=== PATIENT | male | born 1965 | race Caucasian/White ===

== ENCOUNTER 2017-02-06 22:59 | Inpatient (IN) | payer OTHER ==
[2017-02-06 23:14] VITALS: BMI 29.5
[2017-02-06] MEDS ORDERED: Sodium Chloride 0.9% 1,000 ML IV STA (23:26)
[2017-02-06] MEDS ORDERED: Albuterol-Ipratrop 3 mg / 0.5 (3 ml) UD IH STA (23:27)
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
[2017-02-07 00:33] LABS: ADD MANUAL DIFF? NO
[2017-02-07 00:42] LABS: VENOUS BLOOD GAS BASE EXCESS 4.3 mmol/L (0.0-2.0); VENOUS BLOOD PH 7.35 (7.32-7.43)
[2017-02-07 00:43] LABS: BASO # 0.01 K/mm3 (0.0-2.0); BASO % 0.1 % (0.0-3.0); EOS % 0.6 % (1.5-5.0); GRAN # 4.18 (1.4-6.5); GRAN % 61.2 % (50.0-68.0); HEMATOCRIT 32.5 % (42.0-52.0); LYMPH # 1.8 (1.2-3.4); MEAN CELL VOLUME 89.3 fL (80.0-105.0); MEAN CORPUSCULAR HEMOGLOBIN 29.7 pg (25.0-35.0); MEAN CORPUSCULAR HGB CONC 33.2 g/dl (31.0-37.0); MEAN PLATELET VOLUME 8.9 fl (7.0-11.0); MONO # 0.8 (0.1-0.6); MONO % 12.1 % (1.0-6.0); PLATELET COUNT 125 10^3/uL (120.0-450.0); RED CELL DISTRIBUTION WIDTH 13.9 % (11.5-14.5); WHITE BLOOD COUNT 6.8 10^3/ul (4.5-11.0)
[2017-02-07 00:46] LABS: PH,URINE 7.5 (4.7-8.0); URINE BILIRUBIN NEGATIVE (NEGATIVE); URINE BLOOD MODERATE (NEGATIVE); URINE GLUCOSE (UA) NEGATIVE (NEGATIVE); URINE KETONE NEGATIVE (NEGATIVE); URINE LEUKOCYTE ESTERASE NEGATIVE Leu/uL (NEGATIVE); URINE PROTEIN TRACE mg/dL (<30 mg/dL)
[2017-02-07 00:47] LABS: ALKALINE PHOSPHATASE 63 U/L (38-133); ALT/SGPT 38 U/L (7-56); AST/SGOT 35 U/L (15-59); BILIRUBIN,TOTAL 0.5 mg/dL (0.2-1.3); BLOOD UREA NITROGEN 13 mg/dL (7-21); CALCIUM 7.9 mg/dL (8.4-10.5); CARBON DIOXIDE 29 mmol/L (21-33); CHLORIDE 98 mmol/L (98-107); GFR AFRICAN-AMERICAN > 60; GLUCOSE,RANDOM 125 mg/dL (70-110); INR 1.22 (0.93-1.08); PARTIAL THROMBOPLASTIN TIME 30.3 Seconds (23.7-30.8); POTASSIUM 4.1 mmol/L (3.6-5.0); SODIUM 136 mmol/L (132-148); TOTAL PROTEIN 7.1 g/dL (5.8-8.3)
[2017-02-07 00:48] LABS: URINE APPEARANCE SL CLOUDY (CLEAR); URINE COLOR YELLOW (YELLOW)
[2017-02-07 00:59] LABS: URINE EPITHELIAL CELLS 0 - 2 /hpf (0-5); URINE WBC 0 - 2 /hpf (0-6)
[2017-02-07 01:21] LABS: ARTERIAL BLOOD GAS HCO3 27.9 mmol/L (21-28); ARTERIAL BLOOD GAS O2 CAPACITY 13.8 mL/dl (16-24); ARTERIAL BLOOD GAS O2 CONTENT 13.3 ML/dl (15-23); ARTERIAL BLOOD HGB O2 SAT 93.5 % (95.0-98.0); HHB 3.7 % (0-5); METHEMOGLOBIN 0.8 % (0.0-3.0)
--- NOTE | 2017-02-07 01:31 | RAD ---
EXAM: XR Chest, 1 View CLINICAL HISTORY: 51 years old, male; Condition or disease; Other: Sepsis; Additional info: Sepsis patient TECHNIQUE: Frontal view of the chest. COMPARISON: CR - CHEST PORTABLE 04/21/2016 5:32:49 PM FINDINGS: Limitations: Radiographic technique - mild. Lungs: Mild underinflation. Minimal subsegmental atelectasis. No consolidation. Pleural space: Cannot exclude small pleural effusions. No pneumothorax. Heart: No cardiomegaly. Mediastinum: Unremarkable. Bones/joints: No acute fracture. Postsurgical changes of cervical spine. IMPRESSION: 1. No definite radiographic evidence of pneumonia. 2. Incidental/non-acute findings are described above.
[2017-02-07] MEDS ORDERED: levoFLOXacin 750 mg in D5W 750 MG/150 ML BAG IV STA (02:35)
[2017-02-07] MEDS ORDERED: Albuterol-Ipratrop 3 mg / 0.5 (3 ml) UD IH STA (02:38)
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
[2017-02-07] MEDS: Sodium Chloride 0.9% 1,000 ML IV SCH (03:50)
[2017-02-07] MEDS: Albuterol-Ipratrop 3 mg / 0.5 (3 ml) UD IH PRN (07:29)
[2017-02-07] MEDS ORDERED: Iohexol 350 MG/100 ML VIAL ONE (07:46)
[2017-02-07] MEDS: Insulin Reg-LOW-Coverage SC SCH ×4 (08:27→23:04)
[2017-02-07 09:04] LABS: IRON 36 ug/dL (45-180)
--- NOTE | 2017-02-07 09:31 | CT ---
PROCEDURE: CT Chest with contrast HISTORY: SOB; eval for PNA COMPARISON: None. TECHNIQUE: Contiguous axial images were obtained through the chest with intravenous contrast enhancement. Sagittal and coronal reconstructions were performed. IV contrast: 100 cc Omnipaque 350 contrast material. Radiation dose (DLP): 603.36 mGy-cm. This CT exam was performed using one or more of the following dose reduction techniques: Automated exposure control, adjustment of the mA and/or kV according to patient size, and/or use of iterative reconstruction technique. FINDINGS: LUNGS: Bibasilar consolidation changes could represent atelectasis and or infiltrates. MEDIASTINUM: Diffuse circumferential wall thickening of the esophagus most significant at involving the lower 1/3 of the esophagus. . There is food debris and air seen throughout the lower esophagus with a larger amount of air in the proximal esophagus. Findings are nonspecific though differential diagnosis would include esophagitis high or possibly esophageal carcinoma. Endoscopy followup is recommended. Heart appears upper limits of normal/borderline enlarged. No significant pericardial effusion. Ascending thoracic aorta measures approximately 2.9 cm and descending thoracic aorta measures approximately 2.4 cm. Pulmonary trunk measures approximately 3.3 cm; rule out underlying pulmonary arterial hypertension. There are multiple mediastinal lymph nodes nonspecific. Additionally, infrahilar adenopathy cannot be completely excluded as the aforementioned consolidation changes extend superomedially into the infrahilar regions of. Consolidation and adenopathy and therefore difficult to distinguish. The central airway midline and patent. No obvious endoluminal lesions. PLEURA: No pleural fluid. No pneumothorax. BONES: No fracture. No destructive lesion. UPPER ABDOMEN: Spleen is mildly enlarged measuring just over 13 cm in AP dimension. No splenic mass or collection. Moderate - significant fatty hepatic infiltration. Small exophytic cyst upper pole left kidney. OTHER FINDINGS: None. IMPRESSION: There is diffuse circumferential wall thickening of the entire esophagus the most significant involving the lower 1/2 of the esophagus. Findings are of uncertain etiology though differential diagnosis would include esophagitis or possibly esophageal carcinoma. Endoscopy followup is recommended. Bibasilar consolidation changes may represent atelectasis and or infiltrates. Multiple small mediastinal lymph nodes. Additionally, infrahilar adenopathy cannot be completely excluded as the aforementioned consolidation changes extend superomedially into the infrahilar regions of. Consolidation and adenopathy and therefore difficult to distinguish Moderate to significant fatty hepatic infiltration. Mild splenomegaly. Small exophytic cyst upper pole left kidney. These findings and recommendations discussed with the resident [employer] certified network professional Dr. Bower at approximately at 9:22 a.m. with written down and read back verification.
[2017-02-07] MEDS ORDERED: BUPRENORPHINE HCL PO SCH (10:00)
[2017-02-07] MEDS ORDERED: NALOXONE HCL PO SCH (10:00)
[2017-02-07] MEDS ORDERED: [UNRECOGNIZED DRUG - OTHER] PO SCH (10:00)
[2017-02-07 12:42] LABS: FOLATE 16.2 ng/mL
--- NOTE | 2017-02-07 17:08 | CON ---
DATE: 02/07/2017 Seen and examined at the bedside earlier this afternoon. The chart was reviewed. REQUEST FOR CONSULT: Esophageal thickening on CT scan. HISTORY OF PRESENT ILLNESS: This is a 51-year-old male with a past medical history of diabetes melli tus type 2, opioid abuse on Suboxone, came to the Emergency Room with complaints of fever. The patie nt reports having taken his temperature at home and found to be at least 100.3. He also complained o f productive cough, nasal congestion and feeling fatigued. The patient was seen by his PCP, Dr. Vane arita, and was given a prescription for azithromycin and informed to go to the Emergency Room if sympto ms did not improve. The patient denies any nausea, vomiting, abdominal pain or any chest pains. No complaints of any diarrhea or any overt GI bleed. On admission, he had a chest x-ray and that report ed minimal subsegmental atelectasis, no consolidation and could not exclude small pleural effusions. He then had a CT of the chest this morning and that reported thickening in the esophagus considering esophagitis or a possible malignancy as well as bibasilar consolidations, which could be atelectasis or infiltrates. He is also noted to have small multiple mediastinal lymph nodes. The patient repor ts that he had an upper endoscopy that was recommended to him by his PCP at [facility] a few months ago. He is not aware of the findings. No reports of any hematemesis or hemoptysis at this time. VITAL SIGNS: Temperature is 97.9, blood pressure 116/61, pulse is 60, respirations 20 and 94 on room air. LABORATORY: This is from 02/06: WBC is 6.8, H and H are 10.8 and 32.5, platelets of 125. PT is 13. 2, INR is 1.22, PTT is 38.3. Sodium is 136, K is 4.1, BUN 13, creatinine 0.6. Iron 36, TIBC is 280, percent saturation is 13. Ferritin is 138. His B12 is 595 and that is fine. Folate is 16.2. Urin alysis was negative for leukocyte esterase, did show moderate blood and a trace of protein. PHYSICAL EXAMINATION: HEENT: Sclerae are anicteric. NECK: Supple. CARDIAC: S1, S2. LUNGS: Decreased breath sounds. Positive rhonchi bilaterally. Did not hear any wheezing or rales. ABDOMEN: With bowel sounds, soft. Does not appear distended, nontender on palpation. No rebound, g uarding. EXTREMITIES: Positive pedal pulses, no edema. NEUROLOGIC: Awake, alert, and oriented. ASSESSMENT: This is a 51-year-old male who came in with complaints of fever and productive cough, fe eling weakness. A chest x-ray was negative for any evidence of pneumonia. He also had a CT scan of the chest, which reported bibasilar consolidation changes either atelectasis or infiltrates, but he w as noted to have some circumferential thickening in the entire esophagus with unknown etiology consid ering esophagitis versus esophageal carcinoma. The patient also noted to have multiple mediastinal l ymph nodes present. Other comorbidities is history of opiate abuse on Suboxone. PAST SURGICAL HISTORY: The patient had C-spine. Denies any abdominal or cardiac surgery. FAMILY HISTORY: Brother with CABG. ALLERGIES: PENICILLIN. SOCIAL HISTORY: Former tobacco use. Denies any illicit drugs or alcohol. ALLERGIES: PENICILLIN. MEDICATIONS: Reviewed as per MAR. REVIEW OF SYSTEMS: Systems reviewed with positive findings, see HPI. PAST MEDICAL HISTORY: A 51-year-old male with history of diabetes mellitus type 2, came with fever a nd complaints of cough. Chest x-ray was negative for any evidence of pneumonia. He did go for a CT scan, which showed the thickening in the entire esophagus, rule out any esophagitis, rule out esophag eal carcinoma, multiple small mediastinal lymph nodes, splenomegaly and fatty hepatic infiltration. PLAN: The patient states he had an endoscopy in [facility]. We will request to obta in these records for further review and then evaluate the need for upper endoscopy to follow this up. The patient is going to be started on Levaquin IV antibiotics, on IV fluids for hydration. Continu e GI prophylaxis, Protonix. He is on insulin and on consistent carbohydrate diet. Thank you for this consult and for allowing us to participating in your patient's care. We will make further recommendations based upon patient's clinical course. The patient was seen and case discuss ed with Dr. Al. Aarti PARISI cc: [id number] TT: 02/07/2017 17:07:53 Confirmation # [id number] Dictation # [id number] mn
--- NOTE | 2017-02-07 20:19 | CON ---
DATE: 02/07/2017 ADDENDUM This is an addendum to the GI consultation report dictated by Aarti Molina APN. This patient was adm itted with cough, shortness of breath and fever. The patient had a CT scan, which showed thickening of the esophagus, rule out esophagitis, also multiple small mediastinal lymph nodes were present. GI consultation was requested to evaluate this. The patient did have recently an endoscopy and a colon oscopy. As per the patient, colonoscopy preparation was poor and he is advised to get it done again. He has not seen the foundry laborer coreroom postprocedure yet. He does not remember the exact findings of the upper endoscopy. On examination, his abdomen was soft. There is no tenderness. PLAN: 1. To continue the antibiotics and treatment. 2. PPI, Protonix 40 mg daily in addition. 3. We will review the records to the previous endoscopy done in [facility] and the pathology. Thank you very much for allowing us to participate in the care of the patient. Kimberly Al MD cc: [id number] TT: 02/07/2017 20:18:43 Confirmation # [id number] Dictation # [id number] mn
[2017-02-07] MEDS: guaiFENesin 200 mg/10 ml Syrup UD PO PRN (21:34)
[2017-02-08] MEDS: Pantoprazole 40 mg EC Tab PO SCH (05:40)
[2017-02-08 07:35] LABS: ADD MANUAL DIFF? NO
[2017-02-08 07:39] LABS: BASO # 0.01 K/mm3 (0.0-2.0); BASO % 0.1 % (0.0-3.0); EOS # 0.1 (0.0-0.7); EOS % 1.2 % (1.5-5.0); GRAN # 3.79 (1.4-6.5); GRAN % 56.9 % (50.0-68.0); HEMATOCRIT 32.6 % (42.0-52.0); LYMPH # 2.1 (1.2-3.4); LYMPH % 31.6 % (22.0-35.0); MEAN CELL VOLUME 89.1 fL (80.0-105.0); MEAN CORPUSCULAR HGB CONC 32.5 g/dl (31.0-37.0); MEAN PLATELET VOLUME 8.3 fl (7.0-11.0); MONO # 0.7 (0.1-0.6); MONO % 10.2 % (1.0-6.0); PLATELET COUNT 116 10^3/uL (120.0-450.0); RED CELL DISTRIBUTION WIDTH 13.6 % (11.5-14.5); WHITE BLOOD COUNT 6.7 10^3/ul (4.5-11.0)
[2017-02-08 08:22] LABS: ALKALINE PHOSPHATASE 61 U/L (38-133); ALT/SGPT 37 U/L (7-56); AST/SGOT 28 U/L (15-59); BILIRUBIN,TOTAL 0.4 mg/dL (0.2-1.3); BLOOD UREA NITROGEN 7 mg/dL (7-21); CALCIUM 7.8 mg/dL (8.4-10.5); CARBON DIOXIDE 29 mmol/L (21-33); CHLORIDE 102 mmol/L (95-110); GFR AFRICAN-AMERICAN > 60; GLUCOSE,RANDOM 115 mg/dL (70-110); POTASSIUM 4.3 mmol/L (3.6-5.0); SODIUM 137 mmol/L (132-148); TOTAL PROTEIN 6.6 g/dL (5.8-8.3)
[2017-02-08] MEDS: Insulin Reg-LOW-Coverage SC SCH ×4 (08:31→21:15)
[2017-02-08] MEDS: levoFLOXacin 750 mg in D5W 750 MG/150 ML BAG IVPB SCH (09:59)
[2017-02-08] MEDS: Sodium Chloride 0.9% 1,000 ML IV SCH ×2 (10:00→12:22)
[2017-02-08] MEDS: Albuterol-Ipratrop 3 mg / 0.5 (3 ml) UD IH PRN ×2 (11:27→14:55)
[2017-02-08] MEDS: guaiFENesin 200 mg/10 ml Syrup UD PO PRN ×2 (12:20→21:14)
--- NOTE | 2017-02-08 13:23 | CP.PCM.PN ---
<Jonny Cooper - Last Filed: 02/08/17 13:10> Subjective - Date & Time of Evaluation Date of Evaluation: 02/08/17 Time of Evaluation: 08:00 - Subjective Subjective: Hospitalist Progress note: Pt seen and examined at bedside. No acute events overnight. Pt states that he still has a cough but it is much improved from yesterday. Denies any shortness of breath. Denies any headaches, dizziness, f/c, cp, abd pain, n/v/d, urinary or bm changes. Objective - Vital Signs/Intake and Output Vital Signs (last 24 hours): Temp Pulse Resp BP Pulse Ox 98.5 F 61 22 132/68 92 L 02/08/17 07:30 02/08/17 07:30 02/08/17 07:30 02/08/17 07:30 02/08/17 07:30 Intake and Output: 02/08/17 02/08/17 06:59 18:59 Intake Total 3300 Balance 3300 - Medications Medications: Current Medications Acetaminophen (Tylenol 325mg Tab) 650 mg PO Q4 PRN PRN Reason: Fever >100.4 F Albuterol/Ipratropium (Duoneb 3 Mg/0.5 Mg (3 Ml) Ud) 3 ml IH Q2H PRN PRN Reason: Shortness of Breath Last Admin: 02/08/17 11:27 Dose: 3 ml Guaifenesin (Robitussin) 200 mg PO Q4H PRN PRN Reason: Cough and congestion Last Admin: 02/08/17 12:20 Dose: 200 mg Levofloxacin/Dextrose (Levaquin 750mg) 750 mg in 150 mls @ 100 mls/hr IVPB DAILY OBDULIO Last Admin: 02/08/17 09:59 Dose: 100 mls/hr Sodium Chloride (Sodium Chloride 0.9%) 1,000 mls @ 100 mls/hr IV .Q10H OBDULIO Last Admin: 02/08/17 12:22 Dose: 100 mls/hr Insulin Human Regular (Humulin R Low) 0 units SC ACHS OBDULIO PRN Reason: Protocol Last Admin: 02/08/17 12:14 Dose: 2 units Pantoprazole Sodium (Protonix Ec Tab) 40 mg PO 0600 OBDULIO Last Admin: 02/08/17 05:40 Dose: 40 mg - Labs Labs: 02/08/17 07:20 02/08/17 07:20 PT 13.2 Seconds (9.9-11.8) H 02/06/17 23:59 INR 1.22 (0.93-1.08) H 02/06/17 23:59 APTT 30.3 Seconds (23.7-30.8) 02/06/17 23:59 - Constitutional Appears: No Acute Distress - Head Exam Head Exam: ATRAUMATIC, NORMAL INSPECTION, NORMOCEPHALIC - Eye Exam Eye Exam: EOMI, Normal appearance, PERRL Pupil Exam: NORMAL ACCOMODATION, PERRL - ENT Exam ENT Exam: Mucous Membranes Moist, Normal Exam - Neck Exam Neck Exam: Full ROM, Normal Inspection. absent: Lymphadenopathy - Respiratory Exam Respiratory Exam: Rhonchi, Wheezes Additional comments: b/l - Cardiovascular Exam Cardiovascular Exam: REGULAR RHYTHM, +S1, +S2. absent: Murmur - GI/Abdominal Exam GI & Abdominal Exam: Soft, Normal Bowel Sounds. absent: Distended, Tenderness - Extremities Exam Extremities Exam: Full ROM, Normal Capillary Refill, Normal Inspection. absent : Joint Swelling, Pedal Edema - Back Exam Back Exam: NORMAL INSPECTION - Neurological Exam Neurological Exam: Alert, Awake, CN II-XII Intact, Normal Gait, Oriented x3 - Psychiatric Exam Psychiatric exam: Normal Affect, Normal Mood - Skin Skin Exam: Dry, Intact, Normal Color, Warm Assessment and Plan - Assessment and Plan (Free Text) Assessment: 51yo male with history of DMT2 presents c/o fever, chills and productive cough for past 3 days 1. Acute bronchitis -afebrile, no leukocytosis, - Cont Levaquin 750mg IV daily - CXR revealed no definite radiographic evidence of pneumonia - CT chest showed diffuse circumferential wall thickening of entire esophagus, venancio in lower half. finding unclear etiology with differential diagnosis including esophagitis and esophageal ca, endoscopy recommended. bibasilar consolidation may represent atelectasis / infiltrate, multiple small mediastinal lymph node, infra hilar adenopathy cannot be excluded as consolidation extended superiomedially into hilar regions. -EKG reviewed; no acute ST-T wave changes -Lactate within normal limits -Duoneb q2h PRN -Robitussin PRN -Tylenol PRN for fevers -Procalcitonin pending -Blood/urine/sputum cultures pending 2. Esophageal wall thickening - Currently asymptomatic - F/u GI Dr Mikaela kovacs - Pt states he had a recent endoscopy done, will try to obtain records 3. Diabetes type 2 -Consistent carb diet -Fingersticks ACHS -Humulin ISS low dose 4. Anemia -f/u Iron, ferritin, TIBC, b12, folate 5. GI/DVT ppx - Protonix and SCDs Case and plan was reviewed and discussed in detail with Dr Alvarez. <Ruth Alvarez - Last Filed: 02/08/17 15:19> Objective - Vital Signs/Intake and Output Vital Signs (last 24 hours): Temp Pulse Resp BP Pulse Ox 98.5 F 61 22 132/68 92 L 02/08/17 07:30 02/08/17 07:30 02/08/17 07:30 02/08/17 07:30 02/08/17 07:30 Intake and Output: 02/08/17 02/08/17 06:59 18:59 Intake Total 3300 840 Balance 3300 840 - Medications Medications: Current Medications Acetaminophen (Tylenol 325mg Tab) 650 mg PO Q4 PRN PRN Reason: Fever >100.4 F Albuterol/Ipratropium (Duoneb 3 Mg/0.5 Mg (3 Ml) Ud) 3 ml IH Q2H PRN PRN Reason: Shortness of Breath Last Admin: 02/08/17 14:55 Dose: 3 ml Guaifenesin (Robitussin) 200 mg PO Q4H PRN PRN Reason: Cough and congestion Last Admin: 02/08/17 12:20 Dose: 200 mg Levofloxacin/Dextrose (Levaquin 750mg) 750 mg in 150 mls @ 100 mls/hr IVPB DAILY OBDULIO Last Admin: 02/08/17 09:59 Dose: 100 mls/hr Sodium Chloride (Sodium Chloride 0.9%) 1,000 mls @ 100 mls/hr IV .Q10H OBDULIO Last Admin: 02/08/17 12:22 Dose: 100 mls/hr Insulin Human Regular (Humulin R Low) 0 units SC ACHS OBDULIO PRN Reason: Protocol Last Admin: 02/08/17 12:14 Dose: 2 units Pantoprazole Sodium (Protonix Ec Tab) 40 mg PO 0600 OBDULIO Last Admin: 02/08/17 05:40 Dose: 40 mg Polyethylene Glycol (Miralax) 17 gm PO DAILY OBDULIO - Labs Labs: 02/08/17 07:20 02/08/17 07:20 PT 13.2 Seconds (9.9-11.8) H 02/06/17 23:59 INR 1.22 (0.93-1.08) H 02/06/17 23:59 APTT 30.3 Seconds (23.7-30.8) 02/06/17 23:59 Attending/Attestation - Attestation I have personally seen and examined this patient.: Yes I have fully participated in the care of the patient.: Yes I have reviewed all pertinent clinical information, including history, physical exam and plan: Yes Notes (Text): 02/08/17 15:13 51 year old male with past medical history of diabetes who presented with complaint of cough, fever and shortness of breath for the past 3 days. Although CXR was negative for pneumonia, his CT chest showed bibasilar consolidation which may represent atelectasis or pneumonia. He is on IV levaquin. Cultures are so far negative and procalcitonin was not elevated. Today he feels slightly better but still complains of cough and dyspnea on exertion. CT chest also showed diffuse wall thickening of the entire esophagus. GI is following. He reports he had a recent EGD in [facility] which we have requested record of. Further recommendations will be based on his prior EGD. Continue with protonix. Ruth Alvarez MD Hospitalist.
--- NOTE | 2017-02-08 15:23 | PN ---
DATE: 02/08/2017 Seen and examined at the bedside earlier today. The patient does complain of cough, but is slightly improved. No complaints of nausea, vomiting or abdominal pain. He still noticed some throat discomf ort and reports having no bowel movement for about 3-4 days. He complained of the food felt hard goi ng down. No nausea or vomiting. VITAL SIGNS: Temperature is 98.5, blood pressure 132/68, pulse 61, respirations 22. LABORATORIES: WBC is 6.1, H and H is 10.6 and 32.6, platelets is 116. Sodium 137, K 4.3, BUN 7, cre atinine is 0.5. LFTs are within normal limits. PHYSICAL EXAMINATION: HEENT: Sclera is anicteric. NECK: Supple. CARDIAC: S1, S2. LUNG SOUNDS: With decreased breath sounds at the bases, but positive air entry, positive for scatter ed rhonchi and wheezing. ABDOMEN: With bowel sounds, soft, nontender. No rebound or guarding. EXTREMITIES: No edema. NEUROLOGIC: Awake, alert, and oriented. ASSESSMENT: This is a 51-year-old male with a past medical history of diabetes mellitus type 2, came with complaints of fevers, productive cough. Likely, patient has acute bronchitis. Being treated f or acute bronchitis. Had abnormal CT scan showing circumferential wall thickening in the entire esop hagus, unclear etiology, consider differentials of esophagitis versus malignancy. The patient did hurt ve recent endoscopy, which we are working on obtaining this previous endoscopy report. The patient w as also noted to have some mediastinal lymph nodes. He also is noted to have anemia and now constipa tion. PLAN: Review the endoscopy report, which we are waiting to obtain. Will make further recommendation s based upon those findings. The patient would benefit from an endoscopy. Monitor H and H. We will change his diet to a moderate carbohydrate soft diet and patient is on antibiotics of Levaquin. Con tinue PPI, Protonix. He is also receiving IV fluids and we will give him MiraLax to help in bowel mo vement. The patient was seen and case discussed with Dr. Al. Aarti PARISI cc: [id number] TT: 02/08/2017 15:22:15 Confirmation # [id number] Dictation # [id number]
[2017-02-08 16:34] VITALS: O2SAT 94
--- NOTE | 2017-02-08 22:24 | PN ---
DATE: 02/08/2017 ADDENDUM HISTORY OF PRESENT ILLNESS: This is an addendum to the GI progress report dictated by Rick Han. The patient was seen and evaluated earlier. Feels much better. His cough has become less and al so he is breathing better. The previous endoscopy reports were reviewed. The patient did have an en doscopy and also colonoscopy. The EG junction on endoscopic appearance appears to be okay. I do not have a path report yet to review. RECOMMENDATIONS: To have the patient followed up by the timber appraiser upon discharge. The lynda ent's family and the primary physician also are aware of the issue. Continue the PPI. Thank you very much for allowing us to participate in the care of the patient. Kimberly Al MD cc: [id number] TT: 02/08/2017 22:23:50 Confirmation # [id number] Dictation # [id number]
[2017-02-09] MEDS: Pantoprazole 40 mg EC Tab PO SCH (06:37)
[2017-02-09 07:17] LABS: ADD MANUAL DIFF? NO
[2017-02-09 07:29] LABS: BASO # 0.01 K/mm3 (0.0-2.0); BASO % 0.2 % (0.0-3.0); EOS # 0.1 (0.0-0.7); EOS % 1.7 % (1.5-5.0); GRAN # 3.59 (1.4-6.5); GRAN % 54.4 % (50.0-68.0); HEMATOCRIT 33.8 % (42.0-52.0); LYMPH # 2.5 (1.2-3.4); LYMPH % 37.2 % (22.0-35.0); MEAN CELL VOLUME 88.5 fL (80.0-105.0); MEAN CORPUSCULAR HEMOGLOBIN 28.8 pg (25.0-35.0); MEAN CORPUSCULAR HGB CONC 32.5 g/dl (31.0-37.0); MEAN PLATELET VOLUME 8.6 fl (7.0-11.0); MONO # 0.4 (0.1-0.6); MONO % 6.5 % (1.0-6.0); PLATELET COUNT 116 10^3/uL (120.0-450.0); RED CELL DISTRIBUTION WIDTH 13.7 % (11.5-14.5); WHITE BLOOD COUNT 6.6 10^3/ul (4.5-11.0)
[2017-02-09 07:35] LABS: ALKALINE PHOSPHATASE 62 U/L (38-133); ALT/SGPT 37 U/L (7-56); AST/SGOT 39 U/L (15-59); BILIRUBIN,TOTAL 0.5 mg/dL (0.2-1.3); BLOOD UREA NITROGEN 7 mg/dL (7-21); CALCIUM 8.2 mg/dL (8.4-10.5); CARBON DIOXIDE 33 mmol/L (21-33); CHLORIDE 100 mmol/L (95-110); GFR AFRICAN-AMERICAN > 60; GLUCOSE,RANDOM 110 mg/dL (70-110); POTASSIUM 4.5 mmol/L (3.6-5.0); SODIUM 139 mmol/L (132-148)
[2017-02-09 08:29] VITALS: BP 157/80; PULSE 51; RESP 20; TEMP 98
[2017-02-09] MEDS: Insulin Reg-LOW-Coverage SC SCH ×2 (08:35→12:32)
[2017-02-09] MEDS: levoFLOXacin 750 mg in D5W 750 MG/150 ML BAG IVPB SCH (09:59)
[2017-02-09] MEDS ORDERED: POLYETHYLENE GLYCOL 3350 17 GM/Dose PACKET PO SCH (10:00)
--- NOTE | 2017-02-09 14:05 | CP.PCM.DIS ---
<Jonny Cooper - Last Filed: 02/09/17 13:56> Provider - Provider Date of Admission: 02/08/17 17:10 Attending physician: uRth Alvarez MD Primary care physician: NO PRIMARY CARE PROVIDER Consults: GI Time Spent in preparation of Discharge (in minutes): 40 Hospital Course - Lab Results Lab Results: Most Recent Lab Values WBC 6.6 10^3/ul (4.5-11.0) 02/09/17 07:00 RBC 3.82 10^6/uL (3.5-6.1) 02/09/17 07:00 Hgb 11.0 gm/dL (14.0-18.0) L 02/09/17 07:00 Hct 33.8 % (42.0-52.0) L 02/09/17 07:00 MCV 88.5 fL (80.0-105.0) 02/09/17 07:00 MCH 28.8 pg (25.0-35.0) 02/09/17 07:00 MCHC 32.5 g/dl (31.0-37.0) 02/09/17 07:00 RDW 13.7 % (11.5-14.5) 02/09/17 07:00 Plt Count 116 10^3/uL (120.0-450.0) L 02/09/17 07:00 MPV 8.6 fl (7.0-11.0) 02/09/17 07:00 Gran % 54.4 % (50.0-68.0) 02/09/17 07:00 Lymph % (Auto) 37.2 % (22.0-35.0) H 02/09/17 07:00 [place] % (Auto) 6.5 % (1.0-6.0) H 02/09/17 07:00 Eos % (Auto) 1.7 % (1.5-5.0) 02/09/17 07:00 Baso % (Auto) 0.2 % (0.0-3.0) 02/09/17 07:00 Gran # 3.59 (1.4-6.5) 02/09/17 07:00 Lymph # 2.5 (1.2-3.4) 02/09/17 07:00 [place] # 0.4 (0.1-0.6) 02/09/17 07:00 Eos # 0.1 (0.0-0.7) 02/09/17 07:00 Baso # 0.01 K/mm3 (0.0-2.0) 02/09/17 07:00 PT 13.2 Seconds (9.9-11.8) H 02/06/17 23:59 INR 1.22 (0.93-1.08) H 02/06/17 23:59 APTT 30.3 Seconds (23.7-30.8) 02/06/17 23:59 pCO2 45 mm/Hg (35-45) 02/07/17 01:19 pO2 64.0 mm/Hg (80-100) L 02/07/17 01:19 HCO3 27.9 mmol/L (21-28) 02/07/17 01:19 ABG pH 7.40 (7.35-7.45) 02/07/17 01:19 ABG Total CO2 29.3 mmol.L (22-28) H 02/07/17 01:19 ABG O2 Saturation 96.2 % (95-98) 02/07/17 01:19 ABG O2 Content 13.3 ML/dl (15-23) L 02/07/17 01:19 ABG Base Excess 2.7 mmol/L (-2.0-3.0) 02/07/17 01:19 ABG Hemoglobin 10.1 g/dL (11.7-17.4) L 02/07/17 01:19 ABG Carboxyhemoglobin 2.0 % (0.5-1.5) H 02/07/17 01:19 POC ABG HHb (Measured) 3.7 % (0-5) 02/07/17 01:19 ABG Methemoglobin 0.8 % (0.0-3.0) 02/07/17 01:19 ABG O2 Capacity 13.8 mL/dl (16-24) L 02/07/17 01:19 VBG pH 7.35 (7.32-7.43) 02/06/17 23:59 VBG pCO2 57.0 (40-60) 02/06/17 23:59 VBG HCO3 31.5 mmol/l (21-28) H 02/06/17 23:59 VBG Total CO2 33.2 mmol.L (22-28) H 02/06/17 23:59 VBG O2 Sat (Calc) 96.0 % (40-65) H 02/06/17 23:59 VBG Base Excess 4.3 mmol/L (0.0-2.0) H 02/06/17 23:59 VBG Potassium 4.2 mmol/L (3.6-5.2) 02/06/17 23:59 Hgb O2 Saturation 93.5 % (95.0-98.0) L 02/07/17 01:19 Sodium 136.0 mmol/L (132-148) 02/06/17 23:59 Chloride 104.0 mmol/L (98-107) 02/06/17 23:59 Glucose 135 mg/dl (75-110) H 02/06/17 23:59 Lactate 0.9 mmol/L (0.7-2.1) 02/06/17 23:59 FiO2 21.0 % 02/07/17 01:19 Sodium 139 mmol/L (132-148) 02/09/17 07:00 Potassium 4.5 mmol/L (3.6-5.0) 02/09/17 07:00 Chloride 100 mmol/L (95-110) 02/09/17 07:00 Carbon Dioxide 33 mmol/L (21-33) 02/09/17 07:00 Anion Gap 11 (10-20) 02/09/17 07:00 BUN 7 mg/dL (7-21) 02/09/17 07:00 Creatinine 0.6 mg/dL (0.5-1.4) 02/09/17 07:00 Est GFR ( Amer) > 60 02/09/17 07:00 Est GFR (Non-Af Amer) > 60 02/09/17 07:00 POC Glucose (mg/dL) 226 mg/dL (65-110) H 02/09/17 11:05 Random Glucose 110 mg/dL (70-110) 02/09/17 07:00 Calcium 8.2 mg/dL (8.4-10.5) L 02/09/17 07:00 Iron 36 ug/dL (45-180) L 02/07/17 07:30 TIBC 280 ug/dL (261-462) 02/07/17 07:30 % Saturation 13 % (20-55) L 02/07/17 07:30 Ferritin 138.0 ng/mL 02/07/17 07:30 Total Bilirubin 0.5 mg/dL (0.2-1.3) 02/09/17 07:00 AST 39 U/L (15-59) 02/09/17 07:00 ALT 37 U/L (7-56) 02/09/17 07:00 Alkaline Phosphatase 62 U/L (38-133) 02/09/17 07:00 Total Protein 7.0 g/dL (5.8-8.3) 02/09/17 07:00 Albumin 3.5 g/dL (3.0-4.8) 02/09/17 07:00 Globulin 3.5 gm/dL 02/09/17 07:00 Albumin/Globulin Ratio 1.0 (1.1-1.8) L 02/09/17 07:00 Vitamin B12 595 pg/mL (239-931) 02/07/17 07:30 Folate 16.2 ng/mL 02/07/17 07:30 Procalcitonin 0.13 NG/ML (0.19-0.49) L 02/07/17 07:30 Venous Blood Potassium 4.2 mmol/L (3.6-5.2) 02/06/17 23:59 Urine Color Yellow (YELLOW) 02/06/17 23:59 Urine Appearance Sl cloudy (CLEAR) 02/06/17 23:59 Urine pH 7.5 (4.7-8.0) 02/06/17 23:59 Ur Specific [place] 1.010 (1.005-1.035) 02/06/17 23:59 Urine Protein Trace mg/dL (<30 mg/dL) H 02/06/17 23:59 Urine Glucose (UA) Negative mg/dL (NEGATIVE) 02/06/17 23:59 Urine Ketones Negative mg/dL (NEGATIVE) 02/06/17 23:59 Urine Blood Moderate (NEGATIVE) H 02/06/17 23:59 Urine Nitrate Negative (NEGATIVE) 02/06/17 23:59 Urine Bilirubin Negative (NEGATIVE) 02/06/17 23:59 Urine Urobilinogen 2.0 E.U./dL (<1 E.U./dL) H 02/06/17 23:59 Ur Leukocyte Esterase Negative Stefania/uL (NEGATIVE) 02/06/17 23:59 Urine RBC 2 - 5 /hpf (0-2) 02/06/17 23:59 Urine WBC 0 - 2 /hpf (0-6) 02/06/17 23:59 Ur Epithelial Cells 0 - 2 /hpf (0-5) 02/06/17 23:59 - Hospital Course Hospital Course: 51yo male with past medical history of DM type 2, opiate abuse on suboxone, benzodiazopene abuse that presents c/o productive cough and fever. Basic labwork was done in the ED. Pt was found to have a fever of 100.5F. No leukcytosis. CXR was done and showed no definite radiographic evidence of pneumonia. CT chest was done and showed diffuse circumferential wall thickening of entire esophagus, venancio in lower half. finding unclear etiology with differential diagnosis including esophagitis and esophageal ca, endoscopy recommended. bibasilar consolidation may represent atelectasis / infiltrate, multiple small mediastinal lymph node, infra hilar adenopathy cannot be excluded as consolidation extended superiomedially into hilar regions. Antibiotics were started in the ED and pt was transferred to the floor for close observation. GI was consulted for esophageal thickening recs. Pt started responding well to IV antibiotic/ Levaquin therapy. GI evaluated the patient and after reviewing his charts (from [facility] of his recent endoscopy) they recommended outpatient follow up, close observation, and PPI use. Pt was notified of the results and understood to follow up with marble machine tender. Pt did well on the Antibiotics. His cough has since much improved. Afebrile. Denies any complaints at this time. Denies any hurt, dizziness, f/c, sob, cp, abd pain, n/v/d. Discharge Exam - Head Exam Head Exam: ATRAUMATIC, NORMAL INSPECTION, NORMOCEPHALIC - Eye Exam Eye Exam: EOMI, Normal appearance, PERRL Pupil Exam: NORMAL ACCOMODATION, PERRL - Respiratory Exam Respiratory Exam: Clear to PA & Lateral. absent: Rales, Rhonchi, Wheezes - Cardiovascular Exam Cardiovascular Exam: REGULAR RHYTHM, RRR, +S1, +S2 - GI/Abdominal Exam GI & Abdominal Exam: Normal Bowel Sounds, Soft. absent: Tenderness - Neurological Exam Neurological exam: Alert, CN II-XII Intact, Normal Gait, Oriented x3, Reflexes Normal - Psychiatric Exam Psychiatric exam: Normal Affect, Normal Mood - Skin Skin Exam: Dry, Intact, Normal Color, Warm Discharge Plan - Discharge Medications Prescriptions: levoFLOXacin [Levaquin] 750 mg PO DAILY #7 tab Pantoprazole [Protonix EC Tab] 40 mg PO 0600 #30 ect - Follow Up Plan Condition: IMPROVED Disposition: HOME/ ROUTINE Patient education suggested?: Yes Instructions: Dyspnea (GEN), Hypoxia (GEN), Pneumonia (DC) Additional Instructions: 1.If your symptoms recur come back to the closest ED. 2.Take your medication / antibiotics as prescribed. 3.Follow up with your PMD with in 2-3 days. 4.Follow up with your marble machine tender within 1 week. Referrals: PCP,NO [Primary Care Provider] - Kimberly Al MD [Medical Doctor] - Veena Grimm MD [Staff Provider] - <Ruth Alvarez - Last Filed: 02/09/17 18:14> Provider - Provider Date of Admission: 02/08/17 17:10 Attending physician: Ruth Alvarez MD Primary care physician: RORO PRIMARY CARE PROVIDER Hospital Course - Lab Results Lab Results: Most Recent Lab Values WBC 6.6 10^3/ul (4.5-11.0) 02/09/17 07:00 RBC 3.82 10^6/uL (3.5-6.1) 02/09/17 07:00 Hgb 11.0 gm/dL (14.0-18.0) L 02/09/17 07:00 Hct 33.8 % (42.0-52.0) L 02/09/17 07:00 MCV 88.5 fL (80.0-105.0) 02/09/17 07:00 MCH 28.8 pg (25.0-35.0) 02/09/17 07:00 MCHC 32.5 g/dl (31.0-37.0) 02/09/17 07:00 RDW 13.7 % (11.5-14.5) 02/09/17 07:00 Plt Count 116 10^3/uL (120.0-450.0) L 02/09/17 07:00 MPV 8.6 fl (7.0-11.0) 02/09/17 07:00 Gran % 54.4 % (50.0-68.0) 02/09/17 07:00 Lymph % (Auto) 37.2 % (22.0-35.0) H 02/09/17 07:00 [place] % (Auto) 6.5 % (1.0-6.0) H 02/09/17 07:00 Eos % (Auto) 1.7 % (1.5-5.0) 02/09/17 07:00 Baso % (Auto) 0.2 % (0.0-3.0) 02/09/17 07:00 Gran # 3.59 (1.4-6.5) 02/09/17 07:00 Lymph # 2.5 (1.2-3.4) 02/09/17 07:00 [place] # 0.4 (0.1-0.6) 02/09/17 07:00 Eos # 0.1 (0.0-0.7) 02/09/17 07:00 Baso # 0.01 K/mm3 (0.0-2.0) 02/09/17 07:00 PT 13.2 Seconds (9.9-11.8) H 02/06/17 23:59 INR 1.22 (0.93-1.08) H 02/06/17 23:59 APTT 30.3 Seconds (23.7-30.8) 02/06/17 23:59 pCO2 45 mm/Hg (35-45) 02/07/17 01:19 pO2 64.0 mm/Hg (80-100) L 02/07/17 01:19 HCO3 27.9 mmol/L (21-28) 02/07/17 01:19 ABG pH 7.40 (7.35-7.45) 02/07/17 01:19 ABG Total CO2 29.3 mmol.L (22-28) H 02/07/17 01:19 ABG O2 Saturation 96.2 % (95-98) 02/07/17 01:19 ABG O2 Content 13.3 ML/dl (15-23) L 02/07/17 01:19 ABG Base Excess 2.7 mmol/L (-2.0-3.0) 02/07/17 01:19 ABG Hemoglobin 10.1 g/dL (11.7-17.4) L 02/07/17 01:19 ABG Carboxyhemoglobin 2.0 % (0.5-1.5) H 02/07/17 01:19 POC ABG HHb (Measured) 3.7 % (0-5) 02/07/17 01:19 ABG Methemoglobin 0.8 % (0.0-3.0) 02/07/17 01:19 ABG O2 Capacity 13.8 mL/dl (16-24) L 02/07/17 01:19 VBG pH 7.35 (7.32-7.43) 02/06/17 23:59 VBG pCO2 57.0 (40-60) 02/06/17 23:59 VBG HCO3 31.5 mmol/l (21-28) H 02/06/17 23:59 VBG Total CO2 33.2 mmol.L (22-28) H 02/06/17 23:59 VBG O2 Sat (Calc) 96.0 % (40-65) H 02/06/17 23:59 VBG Base Excess 4.3 mmol/L (0.0-2.0) H 02/06/17 23:59 VBG Potassium 4.2 mmol/L (3.6-5.2) 02/06/17 23:59 Hgb O2 Saturation 93.5 % (95.0-98.0) L 02/07/17 01:19 Sodium 136.0 mmol/L (132-148) 02/06/17 23:59 Chloride 104.0 mmol/L (98-107) 02/06/17 23:59 Glucose 135 mg/dl (75-110) H 02/06/17 23:59 Lactate 0.9 mmol/L (0.7-2.1) 02/06/17 23:59 FiO2 21.0 % 02/07/17 01:19 Sodium 139 mmol/L (132-148) 02/09/17 07:00 Potassium 4.5 mmol/L (3.6-5.0) 02/09/17 07:00 Chloride 100 mmol/L (95-110) 02/09/17 07:00 Carbon Dioxide 33 mmol/L (21-33) 02/09/17 07:00 Anion Gap 11 (10-20) 02/09/17 07:00 BUN 7 mg/dL (7-21) 02/09/17 07:00 Creatinine 0.6 mg/dL (0.5-1.4) 02/09/17 07:00 Est GFR ( Amer) > 60 02/09/17 07:00 Est GFR (Non-Af Amer) > 60 02/09/17 07:00 POC Glucose (mg/dL) 226 mg/dL (65-110) H 02/09/17 11:05 Random Glucose 110 mg/dL (70-110) 02/09/17 07:00 Calcium 8.2 mg/dL (8.4-10.5) L 02/09/17 07:00 Iron 36 ug/dL (45-180) L 02/07/17 07:30 TIBC 280 ug/dL (261-462) 02/07/17 07:30 % Saturation 13 % (20-55) L 02/07/17 07:30 Ferritin 138.0 ng/mL 02/07/17 07:30 Total Bilirubin 0.5 mg/dL (0.2-1.3) 02/09/17 07:00 AST 39 U/L (15-59) 02/09/17 07:00 ALT 37 U/L (7-56) 02/09/17 07:00 Alkaline Phosphatase 62 U/L (38-133) 02/09/17 07:00 Total Protein 7.0 g/dL (5.8-8.3) 02/09/17 07:00 Albumin 3.5 g/dL (3.0-4.8) 02/09/17 07:00 Globulin 3.5 gm/dL 02/09/17 07:00 Albumin/Globulin Ratio 1.0 (1.1-1.8) L 02/09/17 07:00 Vitamin B12 595 pg/mL (239-931) 02/07/17 07:30 Folate 16.2 ng/mL 02/07/17 07:30 Procalcitonin 0.13 NG/ML (0.19-0.49) L 02/07/17 07:30 Venous Blood Potassium 4.2 mmol/L (3.6-5.2) 02/06/17 23:59 Urine Color Yellow (YELLOW) 02/06/17 23:59 Urine Appearance Sl cloudy (CLEAR) 02/06/17 23:59 Urine pH 7.5 (4.7-8.0) 02/06/17 23:59 Ur Specific [place] 1.010 (1.005-1.035) 02/06/17 23:59 Urine Protein Trace mg/dL (<30 mg/dL) H 02/06/17 23:59 Urine Glucose (UA) Negative mg/dL (NEGATIVE) 02/06/17 23:59 Urine Ketones Negative mg/dL (NEGATIVE) 02/06/17 23:59 Urine Blood Moderate (NEGATIVE) H 02/06/17 23:59 Urine Nitrate Negative (NEGATIVE) 02/06/17 23:59 Urine Bilirubin Negative (NEGATIVE) 02/06/17 23:59 Urine Urobilinogen 2.0 E.U./dL (<1 E.U./dL) H 02/06/17 23:59 Ur Leukocyte Esterase Negative Stefania/uL (NEGATIVE) 02/06/17 23:59 Urine RBC 2 - 5 /hpf (0-2) 02/06/17 23:59 Urine WBC 0 - 2 /hpf (0-6) 02/06/17 23:59 Ur Epithelial Cells 0 - 2 /hpf (0-5) 02/06/17 23:59 Attending/Attestation - Attestation I have personally seen and examined this patient.: Yes I have fully participated in the care of the patient.: Yes I have reviewed all pertinent clinical information, including history, physical exam and plan: Yes Notes (Text): 02/09/17 18:11 51 year old male with past medical history of diabetes who presented with complaint of cough, fever and shortness of breath for the past 3 days. Although CXR was negative for pneumonia, his CT chest showed bibasilar consolidation which may represent atelectasis or pneumonia. He was started on levaquin and robitussin with improvement of symptoms. Cultures were negative to date and procalcitonin was low. CT chest also showed diffuse wall thickening of the entire esophagus. Recent E[place] [facility] [place] was reviewed with GI. GI recommended close outpatient GI follow up for repeat EGD (+/-EUS) and colonoscopy. Continue with protonix. Patient is discharged home to follow up with his pmd. Follow up with is marble machine tender for repeat EGD (+/- EUS) and colonoscopy. Continue with protonix. Continue with po antibiotics. Ruth Alvarez MD Hospitalist.
--- NOTE | 2017-02-09 17:04 | PN ---
DATE: 02/09/2017 HISTORY OF PRESENT ILLNESS: Seen and examined at the bedside earlier this morning. The patient sejal es any nausea, vomiting, or abdominal pain. He reported having a bowel movement. He was . No reports of any acute overnight events. VITAL SIGNS: Temperature is 98, blood pressure /80, pulse 51, respirations 20, 94 on room air. LABORATORY DATA: WBC is 6.6, H and H are 11.0 and 33.8, platelets of 116. Sodium is 139, potassium 4.5, BUN is 7, creatinine is 0.6. LFTs are within normal limits. His sputum Gram stain shows moderate gram-positive cocci in chains. Culture is pending. PHYSICAL EXAMINATION: HEENT: Sclerae are anicteric. NECK: Supple. CARDIAC: S1, S2. LUNGS: Decreased breath sounds at the bases, but positive air entry, no rales or wheeze. ABDOMEN: With bowel sounds, soft, nontender. No rebound or guarding. EXTREMITIES: No edema. NEUROLOGIC: Awake, alert, and oriented. ASSESSMENT: A 51-year-old male with history of diabetes mellitus, came with status post fever, impro griselda cough, looks like acute bronchitis. He had a CT scan of the chest that showed thickening in the entire esophagus. We were able to review his previous endoscopy that was done at [facility] and it showed esophagogastric junction on the endoscopy appeared to be okay. PLAN: The patient does state he feels better. He had a bowel movement. He is going to be discharge d home today and we discussed with him to follow up with his primary care physician and his GI doctor . Continue with a soft diet. The patient was seen and case discussed with Dr. Al. The patient was discharged home on PPI and Levaquin. Aarti PARISI cc: [id number] TT: 02/09/2017 17:03:18 Confirmation # [id number] Dictation # [id number] dn
--- NOTE | 2017-02-10 01:35 | PN ---
DATE: 02/09/2017 ADDENDUM: This is an addendum to the GI progress report dictated by Aarti Molina APN. SUBJECTIVE: The patient is doing much better. He said the bleeding has improved, tolerating the sof t diet. PHYSICAL EXAMINATION: ABDOMEN: Soft. LABORATORY DATA: The previous GI workup was reviewed. PLAN: The patient is discharged. The patient is advised to follow up with the primary doctor and al so cpht for repeat endoscopic evaluation. Continue the PPI. Thank you very much for allowing us to participate in the care of the patient. Kimberly Al MD cc: [id number] TT: 02/10/2017 01:34:40 Confirmation # [id number] Dictation # [id number] mn
== END 2017-02-09 12:56 | disposition home or self-care (01) | DRG 96 ==
LOC: ED 22:59 → ERH 02-07 02:40 → 5RSO 02-07 04:41 → OBSVTOIN 02-08 17:10
PROVIDERS: ADMIT Internal Medicine; ATTEND Internal Medicine
PROC: 3E0F7GC Introduction of Other Therapeutic Substance into Respiratory Tract, Via Natural or Artificial Opening (ICD-10-PCS; principal; 2017-02-07)
DX: J20.9 Acute bronchitis, unspecified (principal); R09.02 Hypoxemia; E11.9 Type 2 diabetes mellitus without complications; D64.9 Anemia, unspecified; K59.00 Constipation, unspecified; F11.10 Opioid abuse, uncomplicated; R53.1 Weakness; Z87.891 Personal history of nicotine dependence